=== PATIENT | female | born 1990 | race Caucasian/White ===

== ENCOUNTER 2018-10-24 21:24 | Emergency (ER) | payer MEDICAID, SELFPAY ==
[2018-10-24 21:25] VITALS: BP 116/74; PULSE 106; RESP 15; TEMP 36.4; O2SAT 99; BMI 25.2
[2018-10-24 22:03] VITALS: BP 103/65; BP 94/71; BP 99/62; PULSE 91; PULSE 94; PULSE 97
[2018-10-24] MEDS: 0.9% Normal Saline 1,000 ML 1000 ML IV (22:03)
[2018-10-24] MEDS: Ondansetron 4 MG/2 ML Vial IV (22:03)
[2018-10-24 22:15] LABS: Absolute Lymphocyte Count 1.71 X10^3/uL (0.83-4.51); Basophil# 0.02 X10^3/uL; Basophil% 0.3 % (0-1); Eosinophil# 0.07 X10^3/uL; Eosinophils% 1.1 % (0-5); Hematocrit 33.8 % (37-47); Hemoglobin 11.7 g/dL (12.0-15.0); Lymphocyte # 1.71 X10^3/ul (4.0); Lymphocyte % 26.5 % (19-41); Mean Corp Hgb Conc 34.6 g/dL (32-36); Mean Corpuscular Hgb 31.9 pg (27.0-32.0); Mean Corpuscular Volume 92.1 fL (81-99); Mean Platelet Vol. 10.5 fl (6.2-12.0); Monocyte# 0.65 X10^3/uL; Monocyte% 10.1 % (0-10); NRBC Flagged by Analyzer 0 % (0-5); Neutrophil # 3.97 X10^3/uL (2.7-7.7); Neutrophil % 61.5 % (47-70); POSITIVE MORPHOLOGY YES; Platelet Count 138 K/mm3 (150-450); RBC Distribution Width CV 13.8 % (11.6-14.6); RBC Distribution Width SD 46.8 fl (35.1-43.9); Red Blood Count 3.67 M/mm3 (4.2-5.4); White Blood Count 6.5 K/mm3 (4.4-11.0)
[2018-10-24 22:20] LABS: Differential Indicated SCAN CRITERIA MET
[2018-10-24 22:28] LABS: Red Blood Cells-Urine 0 SEEN /hpf (0-5)
[2018-10-24 22:29] LABS: Color, Urine Yellow (Yellow); Glucose, Dipstick Normal (Normal); Ketone-Dipstick 15 mg/dl (Negative); Leukocyte Esterase-Dipstick 100 /ul (Negative); Nitrite-Dipstick Negative (Negative); Occult Blood-Urine Negative /ul (Negative); Protein-Dipstick 15 mg/dl (Negative); Urine Bilirubin Dipstick Negative (Negative); Urine Clarity Clear (Clear); Urine Urobilinogen 4 mg/dl (Normal)
[2018-10-24 22:34] LABS: Anion Gap 6 (5-15); BUN 6 mg/dL (7-18); BUN/Creat Ratio 13.5 RATIO (10-20); Calcium,Total 8.3 mg/dL (8.5-10.1); Chloride 105 mmol/L (98-107); Creatinine, Serum 0.44 mg/dL (0.55-1.02); EST Glomerular Filtration Rate 181 mL/min (>60); Est Glom Filt Rate - Afr Amer 219 mL/min (>60); Estimated Creatinine Clearance 153.24 ml/min; Glucose 70 mg/dL (74-106); Potassium 3.6 mmol/L (3.5-5.1); Sodium Level 137 mmol/L (136-145)
[2018-10-24 22:35] LABS: Bacteria RARE /hpf (None Seen); Mucous, Urine 1+ /hpf (<or=2+)
[2018-10-24 22:36] LABS: Squamous Epithelial Cells - UA 0-5 SEEN /hpf (5-10); White Blood Cells 0-5 SEEN /hpf (0-5)
[2018-10-24 22:39] LABS: Anisocytosis RARE; Macrocytosis RARE; Platelet Estimate SLT DEC (ADEQ)
--- NOTE | 2018-10-24 23:15 | ED.DCSUM_ITS ---
- ER Visit Summary Date of Service: 10/24/18 Chief Complaint: Lightheaded History of Present Illness: The patient is a 28 F [facility] She is a G2, P1 at 21 weeks and 3 days of . She denies any vaginal bleeding or discharge. She reports that tonight she has been light headed. This worsens when she stands. She has not passed out. Reports is been nauseated and vomited once. She also reports that she has been mildly short of breath. She denies any other complaints. Patient does report that she has been under a great deal of stress. The fetuses father and she broke up approximately 1 week ago. Physical Examination: Vitals: Stable. Afebrile. General: Well-nourished and well-developed. Head: Normocephalic atraumatic. Neck: Supple, no lymphadenopathy. No JVD. Nontender. Cardiovascular: Regular rate and rhythm. No murmurs. Respiratory: No respiratory distress. Clear to auscultation bilaterally. Abdominal: Soft, nontender, nondistended, normal bowel sounds. No guarding, rebound, or peritoneal signs. Gravid uterus. Back: Nontender. Extremities: Nontender, no edema. Skin: Normal color, no rash. Neurologic: Alert and oriented ?3. Cranial nerves II through XII are intact. Normal strength and sensation. Psych: Normal affect. Test Results: CBC shows an H&H of 11.7 and 33.8, platelets 138. Chem-7 shows a calcium of 8.3, glucose of 70, BUN 6, creatinine 0.44. UA shows ketones, leukocytes, and rare bacteria. She is not having any urinary complaints. This was sent for culture. Emergency Department Course and Treatment: Patient was given a liter of normal saline and Zofran IV. She was able to eat here without any difficulty and is resting comfortably. She had heart tones 150. Treatment Plan: Patient will be discharged with Zofran. Instructed to eat frequent small meals. Push fluids. Follow-up with her primary care physician 1 to 2 days if not improving. Return to the emergency department for any worsening symptoms. Disposition: To home in improved and stable condition. Impression: 1. Dehydration. 2. Hypoglycemia. 3. Second trimester . This note was generated with evocatalation software. It may contain incorrect words, spelling, and punctuation that were not noted in review of the chart prior to signing ED Disposition - Plan for ED Patient: Disposition: Home or Assisted Living Instructions: DEHYDRATION (6y-Adult) Prescriptions: Ondansetron [Zofran Odt] 4 mg PO Q8H PRN PRN #10 tab PRN Reason: Nausea Prescription Printed Referrals: Eliza Byrd MD [Primary Care Provider] - 1-2 Days if not improving
[2018-10-24 23:20] VITALS: BP 107/68; PULSE 88; RESP 15; O2SAT 99
[2018-10-26 14:36] LABS: Pathologist Review Reviewed
== END 2018-10-24 23:32 | disposition home or self-care (01) ==
LOC: ED 21:51
PROVIDERS: Emergency Provider Emergency Medicine; Family Provider Family Medicine; PCP Family Medicine
DX: O99.282 Endocrine, nutritional and metabolic diseases complicating pregnancy, second trimester (principal); E86.0 Dehydration; E16.2 Hypoglycemia, unspecified; Z3A.21 21 weeks gestation of pregnancy; O99.332 Smoking (tobacco) complicating pregnancy, second trimester
CPT/HCPCS: 80048; 81001; 85025; 87086; 87088; 96361; 96374; 99284; J7030; J2405

== ENCOUNTER 2019-02-26 09:10 | Inpatient (IN) | payer MEDICAID, SELFPAY ==
--- NOTE | 2019-02-22 11:00 | HP.PCM_ITS ---
History and Physical Date of Admission: 02/26/19 Linn Acosta Physician INDUSTRIAL METHODS CONSULTANT H&P Signed Encounter Date: 02/22/2019 Expand All Collapse All Expand widget buttonCollapse widget button Hide copied text Hover for detailscustomization button Heike Rubio is a 29 year old female who presents for preop for Primary cs for BREECH and bilateral tubal ligation desires sterilization. PAST MEDICAL HISTORY PAST SURGICAL HISTORY FAMILY HISTORY SOCIAL HISTORY CURRENT MEDICATIONS Allergies As of Date: 02/22/2019 (No Known Allergies) Fully Assessed 02/22/2019 REVIEW OF SYSTEMS Abdomen: no pain Bladder: no dysuria .. Expanded ROS: GENERAL: Negative for fever Allergies and current medication updated:Yes EXAM: BP 102/70 Wt 170 lb (77.1kg) GENERAL: pleasant, female in no apparent distress HEENT: Normocephalic, atraumatic, mucus membranes moist and no lesions NECK: full range of motion DERMATOLOGY: Normal, without lesions, non-icteric and non-hirsute ABDOMEN: soft, non-tender and gravid- BREECH on limited bedside ultrasound. NEURO: alert and oriented x3,exam grossly non-focal EXTREMITIES: normal ASSESSMENT AND PLAN: Encounter Diagnosis ICD-10-CM 1. 38 weeks gestation of Z3A.38 URINE OB DIP B/O 2. Pt has been counseled on risks/benefits and alternatives of surgery including but not limited to anesthesia, bleeding, infection, injury to pelvic structures including bowel, bladder, ureters and vessels. Pt wishes to proceed with surgery at this time. 3. Reviewed permanent nature of tubal ligation- pt verbalized understanding. 4. PRE OP instructions reviewed. Linn Beard MD Routine Office Visit on 02/22/2019
[2019-02-26] VITALS (18 sets, daily range): BP systolic 91–113; BP diastolic 46–72; PULSE 56–88; RESP 11–18; TEMP 36.1–36.4; O2SAT 95–100; BMI 30.1
[2019-02-26] MEDS: Lactated Ringers 1,000 ML 999 ML IV (09:55)
[2019-02-26 10:11] LABS: Absolute Lymphocyte Count 1.67 X10^3/uL (0.83-4.51); Absolute Neutrophil Count 7.4 X10^3/uL (2.0-7.7); Basophil# 0.04 X10^3/uL; Basophil% 0.4 % (0-1); Eosinophil# 0.12 X10^3/uL; Eosinophils% 1.1 % (0-5); Hematocrit 34.3 % (37-47); Hemoglobin 11.7 g/dL (12.0-15.0); Lymphocyte # 1.67 X10^3/ul (4.0); Lymphocyte % 15.9 % (19-41); Mean Corp Hgb Conc 34.1 g/dL (32-36); Mean Corpuscular Hgb 30.1 pg (27.0-32.0); Mean Corpuscular Volume 88.2 fL (81-99); Mean Platelet Vol. 10.2 fl (6.2-12.0); Monocyte# 1.09 X10^3/uL; Monocyte% 10.4 % (0-10); NRBC Flagged by Analyzer 0 % (0-5); Neutrophil # 7.35 X10^3/uL (2.7-7.7); Neutrophil % 69.8 % (47-70); Platelet Count 203 K/mm3 (150-450); RBC Distribution Width CV 13.3 % (11.6-14.6); RBC Distribution Width SD 42.9 fl (35.1-43.9); Red Blood Count 3.89 M/mm3 (4.2-5.4); White Blood Count 10.5 K/mm3 (4.4-11.0)
[2019-02-26 10:34] LABS: Amphetamine Urine VISTA NEGATIVE (<1000 ng/mL); Barbiturate Urine VISTA NEGATIVE (< 200 ng/mL); Benzodiazepine Urine VISTA NEGATIVE (< 200 ng/mL); Cocaine Urine VISTA NEGATIVE (< 300 ng/mL); Ecstacy Urine VISTA NEGATIVE (< 500 ng/mL); Methadone Urine VISTA NEGATIVE (< 300 ng/mL); PCP Urine VISTA NEGATIVE (< 25 ng/mL); THC Urine VISTA NEGATIVE (< 50 ng/mL); Vista UDS pH Range 7
[2019-02-26] MEDS: Lactated Ringers 1,000 ML 150 ML IV (11:08)
[2019-02-26] MEDS: Sodium Citrate/Citric Acid 30 ML UDC PO (11:56)
[2019-02-26] MEDS: Cefazolin 2 GM in 0.9% Normal Saline 100 ML IV (11:57)
--- NOTE | 2019-02-26 12:23 | FALS_PTH ---
PATIENT: GUS PRATHER LOC: [facility] U#:[id number] AGE/SX: 29/F ROOM: WP006 RE02/26/[address]: Dr. Linn Beard, MDDOB: 1990 BED: 1 DIS: 02/28/2019 SPEC #: [id number] RECD: 02/26/19 14:22 STATUS: FRANCESCO MING #: [id number] BEL: 02/26/19 12:[address]: Linn Beard DEPT: SURGICAL PATHOLOGY RECD BY: Jluis Hameed ENTERED: 03/01/19 08:01 SP TYPE: FALL TUBES OTHR DR: Dr. Eliza Byrd MD Tissues: Fallopian tube Procedures: Surgery Specimen Level II HEADER OPERATION: Tubal ligation PRE-OP DIAGNOSIS: Sterilization TISSUE SUBMITTED: Fallopian tubes, suture in right MICROSCOPIC DIAGNOSIS Right and left fallopian tubes, bilateral salpingectomies: Two cross-sections of fallopian tubes with no significant pathologic change. AM:danielle 03/02/19 MICROSCOPIC DESCRIPTION Slides are reviewed. GROSS DESCRIPTION Received is one container labeled with the patient's name and designated bilateral fallopian tubes. The specimen consists of two tubular pieces of murray soft tissue with the right tube identified with a suture. The right fallopian tube measures 1.5 cm in length and 0.7 cm in diameter. The left fallopian tube measures 1?cm in length and 0.6 cm in diameter. The entire specimen is submitted in two cassettes as follows: 1??right fallopian tube, 2 - left fallopian tube. Both pieces will be sectioned at the time of embedding. / SJ:danielle 03/01/19 TC:5 CPT: 90074 x2
--- NOTE | 2019-02-26 12:53 | OP.PCM_ITS ---
Delivery Classification: Scheduled Final KARINA: 03/03/19 Final KARINA Source: US <20 weeks Gestational age: 39 Weeks and 2 Days wood bucker: Seema Lan Type of Anesthesia:: Spinal Implants Used: none Date of Procedure: 02/26/19 Pre-Operative Diagnosis: Term gestation, breech, desires sterilization Post-Operative Diagnosis: same, live female infant Indications for : Breech Description of Procedure: After informed consent was obtained the patient was taken to the operating room she was given spinal anesthesia. sHe was placed in the supine position. She was then prepped and draped in normal sterile fashion. Once spinal anesthesia was found to be adequate skin incision was made with a scalpel in a Pfannenstiel fashion. It was carried down to the underlying layer of the fascia. Fascia was then incised midline with scapel and extended laterally using curved vinson. 2 straight Meg's were placed in the superior aspect of the fascial edge and the rectus muscles were dissected off sharply. Attention was then turned to the inf erior aspect where again the fascial edge was grasped with 2 straight Hereford clamps tented up and the rectus muscle dissected off sharply. At this time the rectus muscles were grasped in the midline using 2 Allis clamps and scalpel was used to separate the rectus muscles. Using blunt force the peritoneum was then entered. Metzenbaums were used to take down the rectus muscles inferiorly as well as the peritoneum. At this time the vesicouterine peritoneum was identified. Metzenbaum scissors were used to create a bladder flap and then taken down digitally. Uterine incision was made in a low transverse fashion with the scalpel and then entered bluntly. Gentle opposing traction was placed to extend the uterine incision. The membranes were ruptured amniotic fluid clear. buttocks delivered followed by legs and arms, gentle flexion of head with finger in mouth- head delivered without complication. At this time delayed cord clamping was performed mouth nose were suctioned. Infant was then handed to the waiting nursery team for immediate skin to skin. The placenta was then removed with gentle traction. The uterus was removed from the intra- abdominal cavity is wrapped in a moist lap. He was cleared of all clots and debris using a moist lap. Ring clamps were placed on the uterine angles. #1 Vicryl suture was used in a running locked fashion for the first layer. Follow ed by second imbricating layer with #1 Vicryl. At this time then the uterus was placed back into abdominal cavity uterine incision was evaluated and noted to be of good hemostasis. Tubes and ovaries were evaluated they were normal. The tubes were grasped in an avascular area with the Lisette 0- plain gut suture was used to create a knuckle this was doubly secured. A portion of the tube was the n resected using the Metzenbaum scissors. And the ends were coagulated using the Bovie. Great hemostasis was appreciated at this time the uterine incision was again evaluated good hemostasis was appreciated. Terence placed over incision and tubal pedicles. The peritoneum and muscle were grasped with Kellys and reapproximated using #2 Vicryl suture in a running fashion. Terence placed over rectus muscle. The fascia was then reapproximated using #1 Vicryl in a running fashion. Subcutaneous layer was evaluated and Bovie was used for any small oozing that was noted per #2-0 plain gut suture was then used to reapproximate the subcutaneous layer 4-0 Vicryl on a Misha needle was used to reapproximate the skin in a subcutaneous fashion. Dry sterile dressing was applied. Instrument lap needle count were correct ?2. Anticipated normal postoperative course for this patient. Amniotic Membrane Rupture Type: Artificial Amniotic Fluid Description: Clear Placenta Disposition: [facility] Drain: Forrest to straight drain Fluids Replaced: 1000 Cord Entanglement: None Cord Vessel Description: 3 Vessels Esitmated Blood Loss (ml): 600 Gender: Female (1 minute): 8 (5 minute): 9 Antibiotic Given: Ancef 2 grams IV x1 Pt instructed on risks of surgery: Bleeding, Anesthesia Risks, Infection, Permanency, Failure Rate of 1 to 2%, Injury to surrounding structure(s) including bowel and bladder, Availability of other non-permanent control options Complications: None - Admit VTE Documentation VTE Present on Admission: Yes VTE Mechan Device Prophylaxis: SCD's VTE Pharm Prophylaxis ordered?: Yes
[2019-02-26] MEDS: Lactated Ringers 1,000 ML 100 ML IV (14:17)
[2019-02-26 14:19] LABS: Pathology Specimen OB SEE PATHOLOGY REPORT
[2019-02-26] MEDS: Oxytocin 30 units/NS 500 ml 30 UNITS/500 ML IV.SOLN 167 UNITS IV (14:30)
[2019-02-26] MEDS: Acetaminophen 500 MG Tablet 1000 MG PO (16:41)
[2019-02-26] MEDS: Ketorolac 30 MG/ML Syringe IV (17:27)
[2019-02-27] VITALS (9 sets, daily range): BP systolic 93–127; BP diastolic 47–67; PULSE 65–98; RESP 14–18; TEMP 36.3–37; O2SAT 97–100
[2019-02-27] MEDS: Ketorolac 30 MG/ML Syringe IV ×3 (00:40→12:27)
[2019-02-27] MEDS: 0.9% Saline Lock 10 ML Syringe IV ×4 (00:40→17:35)
[2019-02-27] MEDS: Lactated Ringers 1,000 ML 100 ML IV (03:51)
[2019-02-27 06:45] LABS: Hematocrit 32.7 % (37-47); Hemoglobin 10.9 g/dL (12.0-15.0); Mean Corp Hgb Conc 33.3 g/dL (32-36); Mean Corpuscular Hgb 29.8 pg (27.0-32.0); Mean Corpuscular Volume 89.3 fL (81-99); Mean Platelet Vol. 10.4 fl (6.2-12.0); Platelet Count 164 K/mm3 (150-450); RBC Distribution Width CV 13.2 % (11.6-14.6); RBC Distribution Width SD 43.8 fl (35.1-43.9); Red Blood Count 3.66 M/mm3 (4.2-5.4); White Blood Count 12.4 K/mm3 (4.4-11.0)
--- NOTE | 2019-02-27 07:43 | PN.OBGYN_ITS ---
Subjective: pt seen at bedside, doing well. pt reports good pain control. lochia mild. bottle feeding. denies N/V, CP. Tolerating regular diet. - Physical Exam Vitals/I&O's: Vital Signs Temp Pulse Resp BP Pulse Ox 98.6 F 85 14 93/57 L 99 02/27/19 04:30 02/27/19 06:22 02/27/19 06:22 02/27/19 04:30 02/27/19 06:22 Oxygen Delivery Method Room Air Weight: 77.111 kg Body Mass Index (BMI) 30.1 Intake and Output for Last 24 Hours 02/25/19 02/26/19 02/27/19 23:59 23:59 23:59 Intake Total 2763.33 / 2763.33 / Output Total 700 / 700 1350 / 1350 Balance 2063.33 / 2062.33 628.34 / 628.34 General: Alert, Oriented x3 Abdomen: Soft, Non Tender, Non-Distended, - - fundus firm. dressing dry and intact Extremities: No Calf Tenderness Laboratory Results 02/26/19 09:55: WBC 10.5, RBC 3.89 L, Hgb 11.7 L, Hct 34.3 L, MCV 88.2, MCH 30.1, MCHC 34.1, RDW Std Deviation 42.9, RDW Coeff of Alisa 13.3, Plt Count 203, MPV 10.2, Immature Gran % (Auto) 2.400 H, Neut % (Auto) 69.8, Lymph % (Auto) 15.9 L, [place] % (Auto) 10.4 H, Eos % (Auto) 1.1, Baso % (Auto) 0.4, Absolute Neuts (auto) 7.4, Absolute Lymphs (auto) 1.67, Nucleated RBC % 0 02/26/19 09:55: Blood Type O POSITIVE, Antibody Screen NEGATIVE 02/26/19 10:00: Urine Opiates Screen NEGATIVE, Urine Methadone Screen NEGATIVE, Ur Barbiturates Screen NEGATIVE, Ur Phencyclidine Scrn NEGATIVE, Ur Amphetamines Screen NEGATIVE, U Methamphetamin-MDMA NEGATIVE, U Benzodiazepines Scrn NEGATIVE, Urine Cocaine Screen NEGATIVE, U Cannabinoids Screen NEGATIVE, Ur Drug Screen Comment 02/27/19 06:30: WBC 12.4 H, RBC 3.66 L, Hgb 10.9 L, Hct 32.7 L, MCV 89.3, MCH 29.8, MCHC 33.3, RDW Std Deviation 43.8, RDW Coeff of Alisa 13.2, Plt Count 164, MPV 10.4 Current Medications Acetaminophen (Tylenol) 1,000 mg PO Q8H PRN PRN Reason: Pain Score 1-3/10 Last Admin: 02/26/19 16:41 Dose: 1,000 mg Documented by: Bisacodyl (Dulcolax) 10 mg RECTAL UD PRN PRN Reason: If no BM Diphenhydramine HCl (Benadryl) 25 mg PO Q6H PRN PRN PRN Reason: ITCHING Stop: 02/27/19 13:47 Enoxaparin Sodium (Lovenox) 40 mg SC DAILY [facility] Hydrocortisone (Hytone) 1 applic TOPICAL TID PRN PRN; Protocol PRN Reason: Discomfort Lactated Ringer's () 1,000 mls @ 100 mls/hr IV .Q10H [facility] Last Infusion: 02/27/19 06:28 Dose: Infused Documented by: Naloxone HCl 4 mg/ Dextrose 504 mls @ 0 mls/hr IV .Q0M PRN; Protocol PRN Reason: Respiratory depression Naloxone HCl 4 mg/ Dextrose 504 mls @ 0 mls/hr IV .Q0M PRN; Protocol PRN Reason: To maintain Resp. rate >10 Ibuprofen (Motrin) 600 mg PO Q6H PRN PRN PRN Reason: Pain Score 1-3/10 Ketorolac Tromethamine (Toradol) 30 mg IV Q6 [facility] Stop: 02/28/19 12:01 Last Admin: 02/27/19 06:24 Dose: 30 mg Documented by: Methylergonovine Maleate (Methergine) 0.2 mg IM X1 PRN PRN Reason: Uterine Atony Nalbuphine HCl (Nubain) 5 mg IV Q3H PRN PRN PRN Reason: ITCHING Stop: 02/27/19 13:47 Naloxone HCl (Narcan) 0.02 mg IV Q1M PRN PRN Reason: RR <10 and pt unresponsive Ondansetron HCl (Zofran) 4 mg IV Q4H PRN PRN PRN Reason: Nausea Oxycodone HCl (Oxyir) 5 - 10 mg PO Q4H PRN PRN PRN Reason: Pain Score 4-10/10 Prochlorperazine Edisylate (Compazine Iv) 10 mg IV Q6H PRN PRN PRN Reason: NAUSEA Senna/Docusate Sodium (Senokot-S, Sofia-Colace) 0 tablet PO DAILY PRN PRN Reason: Constipation Simethicone (Mylicon) 80 mg PO PCHS PRN PRN Reason: Indigestion/stomach pain Sodium Chloride () 5 - 15 ml IV UD PRN PRN Reason: SALINE FLUSH Last Admin: 02/27/19 06:23 Dose: 10 ml Documented by: Medical Necessity - Tobacco Use Smoking Status: Heavy Smoker (>10/day) Assessment/Plan POD#1, doing well routine care dc ac ambulation pain mgmt
[2019-02-27] MEDS: Enoxaparin 40 MG/0.4 ML Syringe SC (09:47)
--- NOTE | 2019-02-27 11:49 | CASEMGMT ---
Social Work Assessment Labor and Delivery Unit Date of Referral: 02/26/19 Date of Intervention: 02/27/19 Time of Intervention: 11:30A Reason for Referral: HISTORY OF POSITIVE DRUG SCREEN FOR THC EARLY IN History obtained from: MEDICAL CHART AND MOTHER OF BABY (MOB) Household composition: MOB LIVES HOME WITH SIGNIFICANT OTHER/FATHER OF BABY GEMMA POPE AND 5 Y/O SON SIVAN POPE. Medical History: MOB IS STATUS POST C SECTION ON 02/26/19 Financial Status: MOB REPORT SHE AND FOB BOTH ARE EMPLOYED. MOB EMPLOYED AT THE [employer]/ Infant Supplies: MOB REPORTS HAS ALL NEEDS MET FOR BABY INCLUDING CLOTHES, DIAPERS, CAR SEAT, CRIB, BOTTLES Childcare/Caregiver(s): MOB REPORTS HAS SUPPORT FROM FAMILY AND FRIENDS AND SHE AND FOB WILL BE MAIN CAREGIVERS. Transportation: MOB DENIES ANY ISSUES WITH TRANSPORTATION. Programs/Agencies Involved: DJFS, WIC, HEL[employer] ME GROW. Children Services/Legal Issues: MOB REPORTS NO HISTORY OF LEGAL ISSUES OR CHILDREN SERVICES. 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 MOB STATES HAS BEEN STARTED ON LOW DOSE OF MEDICATION, UNABLE TO RECALL NAME OF MEDICATION AT THIS TIME. Substance Use History: MOB REPORTS HISTORY OF MARIJUANA USE AND STATES STOPPED SMOKING 2 MONTHS INTO . Drug Screens: MOB POSITIVE FOR THC EARLY ON IN . NURSING REPORTS NEGATIVE SCREEN UPON ADMISSION. Family/Social Stressors: MOB DENIES ANY ISSUES Support Systems: MOB HAS GOOD SUPPORT FROM FOB, FAMILY AND FRIENDS. Depression/Shaken Baby/Safe Sleeping REVIEWED WITH MOB AND PROVIDED RESOURCES. ASSESSMENT: MET WITH MOB AND FOB IN ROOM. INTRODUCED ROLE AND REASON FOR REFERRAL. MOB REPORTS MARIJUANA USE EARLY ON IN AND REPORTS HAD NOT USED SINCE. MOB REPORTED HISTORY OF POST DEPRESSION AFTER FIRST CHILD AND STATES DISCUSSED WITH PHYSICIAN AND WAS STARTED ON MEDICATION. MOB DENIES ANY PREVIOUS COUNSELING. DISCUSSED SYMPTOMS AND SIGNS OF PPD AND PROVIDED MOB WITH RESOURCES. MOB GIVEN LIST OF RESOURCES FOR [facility] IF NEEDED. MOB REPORTS CONNECTED WITH WIC, HELP ME GROW, DJFS, AND SNAP. MOB DENIES ANY NEEDS UPON DISCHARGE. NURSE UPDATED ON THIS WORKER'S ASSESSMENT. NO FURTHER CONCERNS. BABY'S URINE AND MECONIUM WAS COLLECTED. WILL WATCH FOR RESULTS. PLAN: HOME WITH RESOURCES PROVIDED. No other services requested or indicated. -Sandy Edwards, [employer], CUSHION ASSEMBLER
[2019-02-27] MEDS: Ibuprofen 600 MG Tablet PO (17:50)
[2019-02-27] MEDS: Senna/Docusate Sodium 1 Tablet PO (20:43)
[2019-02-27] MEDS: oxyCODONE 5 MG Tablet PO (23:33)
[2019-02-28] MEDS: Ibuprofen 600 MG Tablet PO (02:03)
[2019-02-28 02:07] VITALS: BP 114/67; PULSE 91; RESP 18; TEMP 36.2
[2019-02-28 08:00] VITALS: BP 110/70; PULSE 91; RESP 18; TEMP 36.5
[2019-02-28] MEDS: oxyCODONE 5 MG Tablet PO (08:52)
--- NOTE | 2019-02-28 09:35 | PCM.PN.OB ---
Subjective: pt seen at bedside, doing well. pt reports good pain control. lochia mild. Bottle feeding. Voiding w/o difficulty and +BM. - Physical Exam Vitals/I&O's: Vital Signs Temp Pulse Resp BP Pulse Ox 97.2 F L 91 18 114/67 98 02/28/19 02:07 02/28/19 02:07 02/28/19 02:07 02/28/19 02:07 02/27/19 20:40 Oxygen Delivery Method Room Air Weight: 77.111 kg Body Mass Index (BMI) 30.1 Intake and Output for Last 24 Hours 02/26/19 02/27/19 02/28/19 23:59 23:59 23:59 Intake Total 2763.33 / 2763.33 1977.34 / 1977.34 Output Total 700 / 700 2100 / 2100 Balance 2063.33 / 2063.33 -121.66 / -121.66 General: Alert, Oriented x3 Abdomen: Soft Extremities: No Calf Tenderness Neurological: Cranial nerves II-XII grossly intact Current Medications Acetaminophen (Tylenol) 1,000 mg PO Q8H PRN PRN Reason: Pain Score 1-310 Last Admin: 02/26/19 16:41 Dose: 1,000 mg Documented by: Bisacodyl (Dulcolax) 10 mg RECTAL UD PRN PRN Reason: If no BM Enoxaparin Sodium (Lovenox) 40 mg SC DAILY [facility] Last Admin: 02/27/19 09:47 Dose: 40 mg Documented by: Hydrocortisone (Hytone) 1 applic TOPICAL TID PRN PRN; Protocol PRN Reason: Discomfort Naloxone HCl 4 mg/ Dextrose 504 mls @ 0 mls/hr IV .Q0M PRN; Protocol PRN Reason: Respiratory depression Naloxone HCl 4 mg/ Dextrose 504 mls @ 0 mls/hr IV .Q0M PRN; Protocol PRN Reason: To maintain Resp. rate >10 Ibuprofen (Motrin) 600 mg PO Q6H PRN PRN PRN Reason: Pain Score 1-3/10 Last Admin: 02/28/19 02:03 Dose: 600 mg Documented by: Methylergonovine Maleate (Methergine) 0.2 mg IM X1 PRN PRN Reason: Uterine Atony Naloxone HCl (Narcan) 0.02 mg IV Q1M PRN PRN Reason: RR <10 and pt unresponsive Ondansetron HCl (Zofran) 4 mg IV Q4H PRN PRN PRN Reason: Nausea Oxycodone HCl (Oxyir) 5 - 10 mg PO Q4H PRN PRN PRN Reason: Pain Score 4-10/10 Last Admin: 02/28/19 08:52 Dose: 10 mg Documented by: Prochlorperazine Edisylate (Compazine Iv) 10 mg IV Q6H PRN PRN PRN Reason: NAUSEA Senna/Docusate Sodium (Senokot-S, Sofia-Colace) 0 tablet PO DAILY PRN PRN Reason: Constipation Last Admin: 02/27/19 20:43 Dose: 1 tablet Documented by: Simethicone (Mylicon) 80 mg PO PCHS PRN PRN Reason: Indigestion/stomach pain Last Admin: 02/27/19 17:33 Dose: 80 mg Documented by: Sodium Chloride () 5 - 15 ml IV UD PRN PRN Reason: SALINE FLUSH Last Admin: 02/27/19 17:35 Dose: 10 ml Documented by: Medical Necessity - Tobacco Use Smoking Status: Heavy Smoker (>10/day) Assessment/Plan POD#2, doing well ambulation pain mgmt dc home
--- NOTE | 2019-02-28 09:41 | DCINST_ITS ---
Discharge Diet: No Restrictions Discharge Activity: Return to Normal Activity, May Not Drive - for 2 weeks, May not drive while taking narcotic pain medications., May Shower, May Take a Tub Bath - in 7 days. May resume sexual activity in: 4-6 weeks Lifting Restrictions: 20 pounds Additional Activity Instructions:: Nothing in the vagina for 4-6 weeks. You may return to work/school in 6 weeks. Call your doctor if your incision/area has: Continuous Slow Oozing, Sudden Increased Bleeding, Increased Pain/ Swelling, Increased Redness, Foul Smelling Discharge Call your doctor if you observe: Fever of 101 or Higher, Using more than one pad per hour - for 2 hours Suture Line Care: Avoid Pulling/Pushing, Avoid Pinching/Bending Cleanse incision/area with: Keep Dressing Clean & Dry Additional Instructions: If you experience any of the following, contact your healthcare provider. * Bleeding that soaks a pad every hour for 2 hours * Fever 100.4 or higher * Unrelieved incision or abdominal pain * Swelling, redness, discharge or bleeding from your incision or episiotomy site * Your incision begins to separate * Problems urinating (including inability to urinate or burning while urinating). * Visual changes * Severe headache * Flu-like symptoms * Pain or redness in one of both of your breasts * Pain, warmth, tenderness or swelling in your legs, especially the calf area * Frequent nausea and vomiting * Symptoms of depression or anxiety If you experience any of the following, call 911 or go to the nearest Emergency Room. * Chest pain * Problems breathing * Seizure activity * Partial or complete paralysis of a body part, slurred speech, weakness or drooping of the face, or a sudden inability to walk or hold your balance Allergies/Adverse Reactions: Allergies No Known Allergies Allergy (Verified 10/24/18 21:30) Medications to take at Discharge Vits [Prenatabs FA ] 1 tab PO DAILY 10/24/18 Ibuprofen [Motrin] 600 mg PO Q6H PRN PRN #60 tab 02/28/19 Oxycodone [Oxyir] 5 - 10 mg PO Q4H PRN PRN 7 Days #10 tab 02/28/19 Senna/Docusate Sodium [Senokot-S] 1 tab PO DAILY PRN #30 tab 02/28/19 SimETHICONE [Mylicon] 80 mg PO PCHS PRN #30 tab 02/28/19 The following prescriptions were given: Ibuprofen [Motrin] 600 mg PO Q6H PRN PRN #60 tab PRN Reason: Pain Score 1-3/10 Transmission Status: Pending to [facility] SimETHICONE [Mylicon] 80 mg PO PCHS PRN #30 tab PRN Reason: Indigestion/stomach pain Transmission Status: Pending to [facility] Oxycodone [Oxyir] 5 - 10 mg PO Q4H PRN PRN 7 Days #10 tab PRN Reason: Pain Score 4-10/10 Transmission Status: Sent to [facility] Senna/Docusate Sodium [Senokot-S] 1 tab PO DAILY PRN #30 tab PRN Reason: Constipation Transmission Status: Pending to [facility] Follow-Up: Call to make an appointment with your doctor for an incision check in 1-2 weeks. You will also need a 6 week post- follow up appointment. Test results from this visit will be discussed in further detail at your follow- up appointment, if applicable. Please Follow Up With: Linn Beard MD - Call to make an appointment for an incision check in 1-2 [phone] When: You will need a post- check in 6 weeks. Primary Care Physician: Eliza Byrd MD [Primary Care Provider] -
== END 2019-02-28 10:35 | disposition home or self-care (01) | DRG 539 ==
PROVIDERS: Admitting Provider Obstetrics & Gynecology; Family Provider Family Medicine; PCP Family Medicine; Referring Provider Obstetrics & Gynecology; Visit Provider Obstetrics & Gynecology
PROC: 10D00Z1 Extraction of Products of Conception, Low, Open Approach (ICD-10-PCS; CPT 59514; principal; 2019-02-26 11:45)
DX: O32.1XX0 Maternal care for breech presentation, not applicable or unspecified (principal); Z37.0 Single live birth; O99.334 Smoking (tobacco) complicating childbirth; F17.210 Nicotine dependence, cigarettes, uncomplicated; Z30.2 Encounter for sterilization; Z3A.39 39 weeks gestation of pregnancy
CPT/HCPCS: 80307; 85025; 85027; 86850; 86900; 86901; 88302; 99218; J7120; A4216; G0378; J2405

== ENCOUNTER 2019-11-12 06:17 | Emergency (ER) | payer MEDICAID, SELFPAY ==
[2019-02-26 09:33] VITALS: BMI 30.1
[2019-11-12 06:18] VITALS: BP 130/92; PULSE 79; RESP 18; TEMP 36.4; O2SAT 96; BMI 26.2
--- NOTE | 2019-11-12 06:37 | ED.VIS.DENTA ---
History of Present Illness Chief Complaint: Dental Informant: Patient Onset: Days Context: Gradual Onset Timing: Continuous Associated Symptoms: Jaw Swelling Narrative: Patient is a 29-year-old female with no significant past medical history presenting with right lower dental pain and jaw swelling. Patient had a dental infection about 2 weeks ago and was on 10-day course of amoxicillin. This was prescribed at an urgent care. Patient was feeling better and completed her antibiotics couple days ago. Yesterday she started developing worsening pain in her right lower jaw again. Throughout the night she noticed that her jaw starting to swell. She took ibuprofen with no relief of her symptoms. She is plan on calling a dentist today for follow-up. No other complaints at this time. Patient denies any fever chills. She states she has a mild pain with swelling but no difficulty swallowing. She is handling her secretions well. No change in speech. Patient is a smoker but is only smoked 1 cigarette over last 12 hours because of her dental symptoms. Past Medical History - Allergies and Home Meds Allergies/Adverse Reactions: Allergies No Known Allergies Allergy (Verified 11/12/19 06:22) Past Medical History: None Surgical History: noncontributory Lives: With Family Smoking Status: Current every day smoker Review of Systems General: Denies: Chills, Fever, Sweats Eyes: Denies: Visual changes - bilaterally, Diplopia ENT: Reports: - - Right lower dental pain. Denies: Bilateral ear pain, Rhinorrhea, Sore throat Cardiovascular: Denies: Chest pain, Palpitations Respiratory: Denies: Dyspnea, Cough, Dyspnea on exertion Gastrointestinal: Denies: Abdominal pain, Nausea, Vomiting, Diarrhea, Melena, Hematochezia Genitourinary: Denies: Dysuria, Hematuria, Frequency Musculoskeletal: Denies: Back pain, Extremity Pain Skin: Denies: Rash, Wounds Neurological: Denies: Headache, Weakness, Numbness Physical Exam Vital Signs/Narrative: Vital Signs Temp Pulse Resp BP Pulse Ox 11/12/19 06:18 97.5 F L 79 18 130/92 H 96 Inital Vital Signs reviewed: Yes General: Well nourished, Well developed Head: Normocephalic, Atraumatic ENT: Moist mucous membranes, No rhinorrhea, TM's clear Mouth/Throat: Normal inspection lips/gums, Normal oral mucosa, No focal abscess, No sublingual edema, Focal dental decay - Right lower back molar, - - Mild soft tissue swelling at the angle of the mandible. Negative for: Dental trauma, Focal gum swelling, Tenderness on tooth percussion, Trismus Neck: Supple, No lymphadenopathy, Nontender, No JVD. Negative for: Soft tissue swelling, Submandibular soft tissue swelling Cardiovascular: Regular rate, Regular rhythm, No murmurs Respiratory: No distress, CTA bilaterally, Chest nontender Extremities: Nontender, No edema Skin: Normal color, No rash Neurological: Alert, Oriented x3, Cranial nerves II-XII grossly intact, Normal Strength, Normal Sensation Psychological: Normal affect Diagnostic/Tx/Re-eval - Medical Decision Making Regional and Local Dental Anesthesia: Marcaine, Right Inferior Alveolar Nerve Block Evaluated for right-sided dental pain and lower jaw swelling. There is no discrete area of abscess amenable to I&D. She not have any airway compromise. I do not think imaging is indicated at this time. He is given a dental block for pain control which he tolerates well. She is restarted on penicillin and Motrin. She is given a short course of tramadol for pain control. Patient will follow-up with a dentist. She is given a dental referral sheet. Patient is counseled on signs and symptoms requiring return to the emergency room. Patient verbalizes agreement and understand this plan. Patient discharged home in stable and improved condition. ED Disposition - Plan for ED Patient: Disposition: Home or Assisted Living Diagnosis: Dentalgia, Right facial swelling Instructions: ED Tooth Pain Prescriptions: Ibuprofen [Motrin] 600 mg PO Q6H PRN PRN #20 tab PRN Reason: Pain Score 1-10/10 Transmission Status: Pending to [id number] Penicillin V Potassium 500 mg PO 4X/DAY #40 tab Transmission Status: Pending to [id number] traMADol [Ultram] 50 mg PO Q6H PRN PRN 3 Days #10 tablet PRN Reason: Pain Transmission Status: Received by [id number] Additional Instructions: Follow-up with a dentist in the next day or 2. Please try to quit smoking as this is making the dental infection worse.
[2019-11-12] MEDS: Ibuprofen 600 MG Tablet PO (06:57)
[2019-11-12] MEDS: Penicillin Vk 250 MG Tablet 500 MG PO (06:58)
[2019-11-12] MEDS: Bupivacaine 0.5%/Epi 1.8 ML Syringe INFILT (06:58)
== END 2019-11-12 07:11 | disposition home or self-care (01) ==
LOC: ED 07:05
PROVIDERS: Emergency Provider Emergency Medicine; PCP Family Medicine
DX: R22.0 Localized swelling, mass and lump, head (principal); K08.89 Other specified disorders of teeth and supporting structures; F17.210 Nicotine dependence, cigarettes, uncomplicated
CPT/HCPCS: 64999; 99283

== ENCOUNTER 2020-04-16 09:39 | Emergency (ER) | payer MEDICAID, SELFPAY ==
[2020-04-16 09:40] VITALS: BP 133/90; PULSE 100; RESP 16; TEMP 36.3; O2SAT 100; BMI 23.1
[2020-04-16 09:41] VITALS: BP 133/90; PULSE 100; RESP 16; TEMP 36.3; O2SAT 100
--- NOTE | 2020-04-16 09:50 | ED.VIS.GEN ---
History of Present Illness Chief Complaint: Dental Informant: Patient Narrative: 30-year-old female with no significant past medical history presents with concern for right dental pain. States is been present over the past 3 to 4 days. States it was worsening yesterday. Folic there is increased swelling in the area. Denies any fever or chills. Past Medical History - Allergies and Home Meds Allergies/Adverse Reactions: Allergies No Known Allergies Allergy (Verified 04/16/20 09:39) Primary Care Physician: Eliza Byrd MD [Primary Care Provider] - Prior records reviewed: Yes Past Medical History: None Surgical History: noncontributory Lives: With Family Smoking Status: Current every day smoker Alcohol: None Drugs: None Review of Systems General: Denies: Chills, Fever, Sweats Eyes: Denies: Visual changes - bilaterally, Diplopia ENT: Reports: - - Dental pain. Denies: Rhinorrhea, Sore throat Cardiovascular: Denies: Chest pain, Palpitations Respiratory: Denies: Dyspnea, Cough, Dyspnea on exertion Gastrointestinal: Denies: Abdominal pain, Nausea, Vomiting, Diarrhea, Melena, Hematochezia Genitourinary: Denies: Dysuria, Hematuria, Frequency Musculoskeletal: Denies: Back pain, Extremity Pain Skin: Denies: Rash, Wounds Neurological: Denies: Headache, Weakness, Numbness Physical Exam Vital Signs/Narrative: Vital Signs Temp Pulse Resp BP Pulse Ox 04/16/20 09:41 97.3 F L 100 16 133/90 H 100 04/16/20 09:40 97.3 F L 100 16 133/90 H 100 Inital Vital Signs reviewed: Yes General: Well nourished, Well developed, No Acute Distress Head: Normocephalic, Atraumatic Eyes: Perrl, EOMI ENT: Moist mucous membranes, No rhinorrhea, - - Poor dentention. Right lower molar and premolar with significant decay. No palpable abscess. Neck: Supple, Nontender Cardiovascular: Regular rate, Regular rhythm, No murmurs Respiratory: No distress, CTA bilaterally, Chest nontender Abdomen: Soft, Nontender, Nondistended, Normal bowel sounds Back: Nontender, Normal Inspection Extremities: Nontender, No edema Skin: Normal color, No rash Neurological: Alert, Oriented x3, Cranial nerves II-XII grossly intact, Normal Strength, Normal Sensation Psychological: Normal affect, Normal Mood Diagnostic/Tx/Re-eval - Medical Decision Making Patient appears well and nontoxic. Intramuscular Toradol will be given. Naprosyn and penicillin VK given for home. No evidence of abscess. Full range of motion of the neck. Soft floor of mouth. Given dental follow-up. Asked to return for new or worsening symptoms. Impression: 1. Dental pain 2. Tobacco abuse ED Disposition - Plan for ED Patient: Disposition: Home or Assisted Living Instructions: ED Dental Pain Prescriptions: Naproxen [Naprosyn] 500 mg PO BID #14 tab Prescription Printed Penicillin V Potassium 500 mg PO 4X/DAY #28 tab Prescription Printed Referrals: Eliza Byrd MD [Primary Care Provider] - 2 Days
[2020-04-16] MEDS: Ketorolac 15 MG/ML Vial IM (09:56)
--- NOTE | 2020-04-16 10:08 | ED.RN ---
DISCHARGE INSTRUCTIONS GIVEN TO AND REVIEWED WITH PATIENT, PATIENT DENIES QUESTIONS OR CONCERNS AND VOICES UNDERSTANDING OF DISCHARGE INSTRUCTIONS. PT AMBULATES OUT OF ROOM WITHOUT DIFFICULTY.
== END 2020-04-16 10:09 | disposition home or self-care (01) ==
LOC: ED 10:05
PROVIDERS: Emergency Provider Emergency Medicine
DX: K08.89 Other specified disorders of teeth and supporting structures (principal); F17.200 Nicotine dependence, unspecified, uncomplicated
CPT/HCPCS: 96372; 99282